=== PATIENT | female | born 1950 | race Caucasian/White ===

== ENCOUNTER 2017-03-19 04:28 | Emergency (ER) | payer BC ==
[2017-03-19] MEDS ORDERED: ASPIRIN 81 MG CHEWABLE CTB PO STA (04:43)
[2017-03-19] MEDS ORDERED: NITROGLYCERIN 0.4 MG TAB SL PRN (04:43)
[2017-03-19] MEDS ORDERED: SODIUM CHLORIDE 0.9% FLUSH 10 ML SOL IV PRN (04:43)
[2017-03-19] MEDS ORDERED: NITROGLYCERIN 0.4 MG TAB SL ONE (04:59)
[2017-03-19] MEDS ORDERED: MORPHINE SULFATE 10 MG/ML SOL IV ONE (05:02)
[2017-03-19 05:05] LABS: BASOPHILS % (AUTO) 1 % (0-3); EOSINOPHILS % (AUTO) 1 % (0-9); HEMATOCRIT 39 % (35-47); MEAN CORPUSCULAR HGB CONC 34.2 gm/dl (32.0-36.0); MEAN CORPUSCULAR VOLUME 91 fL (81-99); MONOCYTES % (AUTO) 8.3 % (0-12)
[2017-03-19 05:21] LABS: ALBUMIN 3.6 gm/dl (3.4-5.0); ALT 36 IU/L (14-63); BILIRUBIN,DIRECT 0.1 mg/dl (0.0-0.2); CALCIUM 8.3 mg/dl (8.5-10.1); GLOM FILT RATE 97 mL/min (>60); POTASSIUM 3.8 mMol/L (3.5-5.1); SODIUM 135 mMol/L (136-145)
[2017-03-19 05:34] VITALS: TEMP 96.7
[2017-03-19 08:29] VITALS: BP 98/69; PULSE 70; RESP 13; O2SAT 95
== END 2017-03-19 07:56 | disposition home or self-care (01) ==
LOC: ED 04:28
DX: R07.89 Other chest pain (principal); F32.9 Major depressive disorder, single episode, unspecified; I49.3 Ventricular premature depolarization
CPT/HCPCS: 36415; 71010; 80048; 80076; 82550; 84100; 84484; 85025; 85610; 85730; 93005; 99285